=== PATIENT | male | born 1950 | race Caucasian/White ===

== ENCOUNTER 2017-01-21 08:05 | Emergency (ER) | payer MEDICARE, OTHER ==
[~2017-01-21] VITALS: Ht 177.8 cm; Wt 102.3 kg
[~2017-01-21 08:05] MED LIST: CITALOPRAM20 MG PO; GOOD NEIGHBOR P20 M1 PO; LOSARTAN POTAS100 MG PO; PERCOCET 325 MG1 TA2 PO; PREDNISONE20 M1 PO; ZOLPIDEM10 M1 PO
[2017-01-21] MEDS ORDERED: CELEXA 20MG20 MG/TA1 PO (08:21)
[2017-01-21] MEDS ORDERED: AMLODIPINE BESYL5 MG PO (08:27)
[2017-01-21] MEDS ORDERED: CEPHALEXIN500 M1 PO (09:36)
[2017-01-21 09:50] VITALS: BP 159/89
== END 2017-01-21 09:53 | disposition home or self-care (01) ==
LOC: ED 08:05
DX: S61.210A Laceration without foreign body of right index finger without damage to nail, initial encounter (principal); W23.0XXA Caught, crushed, jammed, or pinched between moving objects, initial encounter; Y92.008 Other place in unspecified non-institutional (private) residence as the place of occurrence of the external cause; I10 Essential (primary) hypertension

== ENCOUNTER → 2017-06-05 | Outpatient (CLI) | payer MEDICARE, OTHER ==
[~2017-06-05] MED LIST changes: +AMLODIPINE BESYL5 MG PO; +CELEXA 20MG20 MG/TA1 PO; +CEPHALEXIN500 M1 PO
[2017-06-05 09:15] LABS: ALBUMIN 4.1 g/dL (3.5-5.0); BUN/CREATININE RATIO 22.9 (6.0-26.0); CALCIUM 8.8 mg/dL (8.4-10.2); POTASSIUM 4.1 mmol/L (3.6-5.0); TOTAL BILIRUBIN 0.6 mg/dL (0.2-1.3); TOTAL PROTEIN 7.1 g/dL (6.3-8.2)
== END ==
LOC: LAB 08:34
PROVIDERS: Family Medicine
DX: I10 Essential (primary) hypertension (principal); Z12.5 Encounter for screening for malignant neoplasm of prostate; Z13.6 Encounter for screening for cardiovascular disorders

== ENCOUNTER → 2017-06-08 | Outpatient (CLI) | payer MEDICARE, OTHER | LOC: LAB 08:37 | DX: R73.01 Impaired fasting glucose (principal) ==

== ENCOUNTER → 2018-03-04 | Outpatient (CLI) | payer MEDICARE, OTHER | LOC: RAD 14:58 | DX: M47.812 Spondylosis without myelopathy or radiculopathy, cervical region (principal); M48.02 Spinal stenosis, cervical region; Z23 Encounter for immunization; Z98.890 Other specified postprocedural states; R20.0 Anesthesia of skin; R29.898 Other symptoms and signs involving the musculoskeletal system ==

== ENCOUNTER → 2018-03-11 | Outpatient (CLI) | payer MEDICARE, OTHER | LOC: RAD 10:54 | PROVIDERS: Family Medicine | DX: M47.812 Spondylosis without myelopathy or radiculopathy, cervical region (principal); M48.02 Spinal stenosis, cervical region; M50.21 Other cervical disc displacement, high cervical region; Z98.1 Arthrodesis status | CPT/HCPCS: A9585 ==

== ENCOUNTER 2018-03-18 09:40 | Emergency (ER) | payer MEDICARE, OTHER ==
[2018-03-18] MEDS ORDERED: DESYREL50 MG PO (10:13)
[2018-03-18] MEDS ORDERED: OXYCODONE PO (10:13)
[2018-03-18] MEDS ORDERED: IBU800 M1 PO (10:14)
[2018-03-18] MEDS ORDERED: FISH OIL 1000MG1 CAP PO (10:15)
[2018-03-18 11:03] LABS: HEMATOCRIT 44.5 % (42.0-52.0); HEMOGLOBIN 14.4 g/dL (13.5-18.0); MEAN CELL VOLUME 89 fl (78-100); MEAN CORPUSCULAR HEMOGLOBIN 29 pg (27-31); MEAN CORPUSCULAR HGB CONC 32 g/dL (33-37); PLATELET COUNT 137 K/mm3 (130-400); RED BLOOD COUNT 5.01 M/mm3 (4.20-5.60); RED CELL DISTRIBUTION WIDTH 13.4 % (11.5-14.5); WHITE BLOOD COUNT 11.2 K/mm3 (4.8-10.8)
[2018-03-18 11:14] LABS: ALBUMIN 4.2 g/dL (3.5-5.0); CALCIUM 8.8 mg/dL (8.4-10.2); POTASSIUM 4.3 mmol/L (3.6-5.0); TOTAL BILIRUBIN 0.8 mg/dL (0.2-1.3)
[2018-03-18 11:22] LABS: D-DIMER 0.38 mg/L FEU (0.15-0.50)
[2018-03-18 11:23] LABS: TROPONIN-I < 0.03 ng/mL (0.00-0.06)
[2018-03-18 11:38] LABS: LYMPHOCYTE 13 % (20-51); MONOCYTE 12 % (3-10); NEUTROPHILS 72 % (42-75)
[2018-03-18 11:46] LABS: URINE WBC 0 /hpf (0-3)
[2018-03-18 11:53] LABS: URINE APPEARANCE CLEAR; URINE BILIRUBIN NEGATIVE (NEGATIVE); URINE BLOOD NEGATIVE (NEGATIVE); URINE COLOR YELLOW; URINE GLUCOSE NEGATIVE (NEGATIVE); URINE KETONE NEGATIVE (NEGATIVE); URINE LEUKOCYTE ESTERASE NEGATIVE (NEGATIVE); URINE NITRATE NEGATIVE (NEGATIVE); URINE PROTEIN(semi-quant) NEGATIVE (NEGATIVE); URINE UROBILINOGEN NORMAL (NORMAL)
[2018-03-18 12:32] VITALS: BP 133/70
== END 2018-03-18 12:33 | disposition home or self-care (01) ==
LOC: ED 09:40
PROVIDERS: Nurse Practitioner Primary Care
DX: R06.00 Dyspnea, unspecified (principal); R42 Dizziness and giddiness; I10 Essential (primary) hypertension; Z79.899 Other long term (current) drug therapy; F41.9 Anxiety disorder, unspecified

== ENCOUNTER → 2018-03-28 | Outpatient (CLI) | payer MEDICARE, OTHER ==
[2018-03-18 12:32] VITALS: BP 133/70
[~2018-03-28] MED LIST changes: +DESYREL50 MG PO; +FISH OIL 1000MG1 CAP PO; +IBU800 M1 PO; +OXYCODONE PO
== END ==
LOC: VAS 16:36 → RAD 16:45
DX: I11.9 Hypertensive heart disease without heart failure (principal); R06.01 Orthopnea

== ENCOUNTER → 2018-03-29 | Outpatient (CLI) | payer MEDICARE, OTHER ==
[2018-03-18 12:32] VITALS: BP 133/70
== END ==
LOC: CARDREHAB 08:38 → CARDLAB 12:10
DX: I11.9 Hypertensive heart disease without heart failure (principal); R06.01 Orthopnea; M51.36 Other intervertebral disc degeneration, lumbar region
CPT/HCPCS: A9500

== ENCOUNTER → 2018-04-26 | Outpatient (CLI) | payer MEDICARE, OTHER ==
[2018-04-26 16:05] LABS: EOS # 0.2 (0.04-0.40); EOS % 2.7 % (0.0-4.0); HEMATOCRIT 42.8 % (42.0-52.0); HEMOGLOBIN 14.1 g/dL (13.5-18.0); LYMPH# 1.9 (1.50-4.00); MEAN CELL VOLUME 87 fl (78-100); MEAN CORPUSCULAR HEMOGLOBIN 29 pg (27-31); MEAN CORPUSCULAR HGB CONC 33 g/dL (33-37); MEAN PLATELET VOLUME 9.4 fl (7.4-10.4); MONO # 0.9 (0.20-0.80); NEU # 5.6 (1.40-6.50); PLATELET COUNT 229 K/mm3 (130-400); RED BLOOD COUNT 4.93 M/mm3 (4.20-5.60); RED CELL DISTRIBUTION WIDTH 12.8 % (11.5-14.5); WHITE BLOOD COUNT 8.7 K/mm3 (4.8-10.8)
[2018-04-26 16:45] LABS: ALBUMIN 4.3 g/dL (3.5-5.0); POTASSIUM 4.1 mmol/L (3.6-5.0); TOTAL BILIRUBIN 0.6 mg/dL (0.2-1.3); TOTAL PROTEIN 7.2 g/dL (6.3-8.2)
[2018-04-26 17:13] LABS: ERYTHROCYTE SEDIMENTATION RATE 32 mm/hr (0-20)
== END ==
LOC: RAD 15:35
PROVIDERS: Internal Medicine
DX: R05 Cough (principal); R06.02 Shortness of breath

== ENCOUNTER → 2018-05-16 | Outpatient (CLI) | payer MEDICARE, OTHER | LOC: RAD 10:38 | DX: M19.011 Primary osteoarthritis, right shoulder (principal); M89.8X1 Other specified disorders of bone, shoulder; Z98.890 Other specified postprocedural states ==

== ENCOUNTER → 2018-09-06 | Outpatient (CLI) | payer MEDICARE, OTHER ==
[~2018-09-06] VITALS: Ht 177.8 cm; Wt 102.3 kg
[~2018-09-06] MED LIST changes: +OMEPRAZOLE D/R20 MG PO
[2018-09-06 17:14] VITALS: BP 141/77
[2018-09-06 17:42] LABS: ALBUMIN 4.3 g/dL (3.5-5.0); POTASSIUM 3.9 mmol/L (3.6-5.0); TOTAL BILIRUBIN 0.6 mg/dL (0.2-1.3)
[2018-09-06 18:21] LABS: HEMATOCRIT 45.4 % (42.0-52.0); MEAN CELL VOLUME 84 fl (78-100); MEAN CORPUSCULAR HEMOGLOBIN 28 pg (27-31); MEAN CORPUSCULAR HGB CONC 33 g/dL (33-37); MEAN PLATELET VOLUME 10.5 fl (7.4-10.4); PLATELET COUNT 164 K/mm3 (130-400); RED BLOOD COUNT 5.39 M/mm3 (4.20-5.60); RED CELL DISTRIBUTION WIDTH 13.9 % (11.5-14.5)
[2018-09-06 18:33] VITALS: BP 139/83
[2018-09-06 18:38] LABS: LYMPHOCYTE 7 % (20-51); NEUTROPHILS 85 % (42-75)
[2018-09-06 18:41] LABS: MONOCYTE 6 % (3-10)
== END ==
LOC: AMSURD 16:42 → LAB 16:42
PROVIDERS: Physician Assistant
DX: K52.9 Noninfective gastroenteritis and colitis, unspecified (principal); E86.0 Dehydration
CPT/HCPCS: J2405; J7030

== ENCOUNTER → 2019-05-26 | Outpatient (CLI) | payer MEDICARE ==
[2018-09-06 18:33] VITALS: BP 139/83
[2019-05-26 10:30] LABS: POTASSIUM 4.5 mmol/L (3.5-5.1)
[2019-05-26 10:31] LABS: CALCIUM 9.2 mg/dL (8.3-10.5)
== END ==
LOC: LAB 10:12
PROVIDERS: Family Medicine
DX: Z00.00 Encounter for general adult medical examination without abnormal findings (principal); Z12.5 Encounter for screening for malignant neoplasm of prostate; Z13.6 Encounter for screening for cardiovascular disorders; Z23 Encounter for immunization; I10 Essential (primary) hypertension; K76.0 Fatty (change of) liver, not elsewhere classified; M47.9 Spondylosis, unspecified; F41.9 Anxiety disorder, unspecified; F51.02 Adjustment insomnia; K21.9 Gastro-esophageal reflux disease without esophagitis; S92.009S Unspecified fracture of unspecified calcaneus, sequela

== ENCOUNTER → 2019-06-09 | Outpatient (CLI) | payer MEDICARE ==
[2018-09-06 18:33] VITALS: BP 139/83
== END ==
LOC: LAB 09:17
DX: R73.9 Hyperglycemia, unspecified (principal)

== ENCOUNTER → 2019-12-26 | Outpatient (CLI) | payer MEDICARE ==
[2018-09-06 18:33] VITALS: BP 139/83
[2019-12-26 08:38] LABS: POTASSIUM 4.1 mmol/L (3.5-5.1)
[2019-12-26 08:39] LABS: CALCIUM 9.2 mg/dL (8.3-10.5)
== END ==
LOC: LAB 07:56
PROVIDERS: Family Medicine
DX: I10 Essential (primary) hypertension (principal); F51.02 Adjustment insomnia

== ENCOUNTER → 2020-01-29 | Outpatient (CLI) | payer MEDICARE ==
[2018-09-06 18:33] VITALS: BP 139/83
== END ==
LOC: CARDLAB 08:06 → CARDREHAB 09:50
DX: F51.02 Adjustment insomnia (principal); G47.34 Idiopathic sleep related nonobstructive alveolar hypoventilation
CPT/HCPCS: G0399

== ENCOUNTER 2020-07-22 13:32 | Emergency (ER) | payer MEDICARE ==
[2020-07-22] MEDS ORDERED: PRILOSEC 20MG20 MG PO (13:43)
[2020-07-22] MEDS ORDERED: PERCOCET 325 MG1 TA2 PO (15:14)
[2020-07-22 15:49] VITALS: BP 166/88
== END 2020-07-22 15:26 | disposition home or self-care (01) ==
LOC: ED 13:32
DX: S69.92XA Unspecified injury of left wrist, hand and finger(s), initial encounter (principal); R07.81 Pleurodynia; I10 Essential (primary) hypertension; F41.9 Anxiety disorder, unspecified; K21.9 Gastro-esophageal reflux disease without esophagitis; W01.0XXA Fall on same level from slipping, tripping and stumbling without subsequent striking against object, initial encounter; Y92.009 Unspecified place in unspecified non-institutional (private) residence as the place of occurrence of the external cause

== ENCOUNTER → 2020-07-29 | Outpatient (CLI) | payer MEDICARE ==
[2020-07-22 15:49] VITALS: BP 166/88
[~2020-07-29] MED LIST changes: +PRILOSEC 20MG20 MG PO
[2020-07-29 07:18] LABS: URINE APPEARANCE CLEAR; URINE BILIRUBIN NEGATIVE (NEGATIVE); URINE BLOOD TRACE (NEGATIVE); URINE COLOR YELLOW; URINE GLUCOSE NEGATIVE (NEGATIVE); URINE KETONE NEGATIVE (NEGATIVE); URINE LEUKOCYTE ESTERASE NEGATIVE (NEGATIVE); URINE MUCUS PRESENT (NOT PRESENT); URINE NITRATE NEGATIVE (NEGATIVE); URINE PROTEIN(semi-quant) 1+ mg/dL (NEGATIVE); URINE UROBILINOGEN NORMAL (NORMAL)
[2020-07-29 07:19] LABS: EOS # 0.3 (0.04-0.40); EOS % 4.5 % (0.0-4.0); HEMATOCRIT 46.6 % (42.0-52.0); HEMOGLOBIN 15.2 g/dL (13.5-18.0); LYMPH# 1.9 (1.50-4.00); MEAN CELL VOLUME 87 fl (78-100); MEAN CORPUSCULAR HEMOGLOBIN 29 pg (27-31); MEAN CORPUSCULAR HGB CONC 33 g/dL (33-37); MEAN PLATELET VOLUME 9.3 fl (7.4-10.4); MONO # 0.5 (0.20-0.80); NEU # 3.6 (1.40-6.50); PLATELET COUNT 157 K/mm3 (130-400); RED BLOOD COUNT 5.33 M/mm3 (4.20-5.60); WHITE BLOOD COUNT 6.4 K/mm3 (4.8-10.8)
[2020-07-29 07:22] LABS: POTASSIUM 4.1 mmol/L (3.5-5.1)
[2020-07-29 07:23] LABS: ALBUMIN 4.2 g/dL (3.4-4.8)
[2020-07-29 07:25] LABS: TOTAL PROTEIN 6.7 g/dL (6.2-8.1)
[2020-07-29 07:27] LABS: TOTAL BILIRUBIN 0.3 mg/dL (0.2-1.2)
== END ==
LOC: RAD 06:53
PROVIDERS: Family Medicine
DX: R10.11 Right upper quadrant pain (principal); R73.9 Hyperglycemia, unspecified; I10 Essential (primary) hypertension

== ENCOUNTER → 2021-03-03 | Outpatient (CLI) | payer MEDICARE ==
[2021-03-03 09:00] LABS: POTASSIUM 3.9 mmol/L (3.5-5.1)
[2021-03-03 09:01] LABS: CALCIUM 9.5 mg/dL (8.3-10.5)
== END ==
LOC: LAB 08:39
PROVIDERS: Family Medicine
DX: I10 Essential (primary) hypertension (principal)

== ENCOUNTER → 2021-09-14 | Outpatient (CLI) | payer MEDICARE | LOC: RAD 14:03 | DX: M47.812 Spondylosis without myelopathy or radiculopathy, cervical region (principal); M43.22 Fusion of spine, cervical region; M46.92 Unspecified inflammatory spondylopathy, cervical region ==

== ENCOUNTER → 2021-09-15 | Outpatient (CLI) | payer MEDICARE | LOC: RAD 09:00 | DX: M47.22 Other spondylosis with radiculopathy, cervical region (principal); M48.02 Spinal stenosis, cervical region; M25.78 Osteophyte, vertebrae ==

== ENCOUNTER 2021-12-23 11:28 | Emergency (ER) | payer MEDICARE ==
[2021-12-23 12:05] LABS: BASO # 0.05 K/mm3 (0.02-0.10); EOS # 0.07 K/mm3 (0.04-0.40); EOS % 0.8 % (0.0-4.0); HEMATOCRIT 45.6 % (42.0-52.0); HEMOGLOBIN 15.3 g/dL (13.5-18.0); LYMPH# 1.39 K/mm3 (1.50-4.00); MEAN CELL VOLUME 88 fl (78-100); MEAN CORPUSCULAR HEMOGLOBIN 29 pg (27-31); MEAN CORPUSCULAR HGB CONC 34 g/dL (33-37); MEAN PLATELET VOLUME 9.6 fl (7.4-10.4); MONO # 1.23 K/mm3 (0.20-0.80); NEU # 6.32 K/mm3 (1.40-6.50); PLATELET COUNT 198 K/mm3 (130-400); RED CELL DISTRIBUTION WIDTH 12.8 % (11.5-14.5); WHITE BLOOD COUNT 9.1 K/mm3 (4.8-10.8)
[2021-12-23 12:12] LABS: ALBUMIN 4.5 g/dL (3.4-4.8); POTASSIUM 3.1 mmol/L (3.5-5.1)
[2021-12-23 12:13] LABS: CALCIUM 10.1 mg/dL (8.3-10.5)
[2021-12-23 12:15] LABS: TOTAL PROTEIN 7.5 g/dL (6.2-8.1)
[2021-12-23 12:16] LABS: TOTAL BILIRUBIN 0.5 mg/dL (0.2-1.2)
[2021-12-23 15:22] VITALS: BP 112/84
== END 2021-12-23 15:20 | disposition home or self-care (01) ==
LOC: ED 11:28
PROVIDERS: Nurse Practitioner
DX: U07.1 COVID-19 (principal); E66.9 Obesity, unspecified
CPT/HCPCS: J7030

== ENCOUNTER → 2021-12-23 | Outpatient (CLI) | payer MEDICARE | LOC: LAB 10:46 | DX: U07.1 COVID-19 (principal) ==

== ENCOUNTER → 2023-07-23 | Outpatient (CLI) | payer MEDICARE ==
[~2023-07-23] MED LIST changes: +ATORVASTATIN CA20 MG PO; +HYGROTON 2525 MG/TAB PO; +ONDANSETRON HYDR4 MG PO
== END ==
LOC: LAB 11:56
PROVIDERS: Family Medicine
DX: Z12.5 Encounter for screening for malignant neoplasm of prostate (principal); Z13.220 Encounter for screening for lipoid disorders; I10 Essential (primary) hypertension; R73.03 Prediabetes

== ENCOUNTER → 2024-01-21 | Outpatient (CLI) | payer MEDICARE ==
[~2024-01-21] MED LIST changes: +LEVOFLOXACIN750 MG PO
[2024-01-21 11:12] LABS: CALCIUM 9.5 mg/dL (8.3-10.5)
== END ==
LOC: LAB 10:46
PROVIDERS: Family Medicine
DX: Z12.5 Encounter for screening for malignant neoplasm of prostate (principal); Z13.220 Encounter for screening for lipoid disorders; I10 Essential (primary) hypertension

== ENCOUNTER → 2024-05-09 | Outpatient (CLI) | payer MEDICARE ==
[2024-05-09 12:35] LABS: HEMATOCRIT 46.9 % (42.0-52.0); HEMOGLOBIN 15.7 g/dL (13.5-18.0); RED BLOOD COUNT 5.38 M/mm3 (4.20-5.60); WHITE BLOOD COUNT 8.8 K/mm3 (4.8-10.8)
[2024-05-09 12:41] LABS: ALBUMIN 4.9 g/dL (3.4-4.8)
[2024-05-09 12:42] LABS: CALCIUM 10.3 mg/dL (8.3-10.5)
[2024-05-09 12:44] LABS: TOTAL PROTEIN 7.9 g/dL (6.2-8.1)
[2024-05-09 12:45] LABS: TOTAL BILIRUBIN 0.5 mg/dL (0.2-1.2)
== END ==
LOC: LAB 12:10
PROVIDERS: Family Medicine
DX: Z13.220 Encounter for screening for lipoid disorders (principal); Z12.5 Encounter for screening for malignant neoplasm of prostate; K76.0 Fatty (change of) liver, not elsewhere classified; I10 Essential (primary) hypertension; E78.2 Mixed hyperlipidemia

== ENCOUNTER → 2024-06-13 | Outpatient (CLI) | payer MEDICARE ==
[~2024-06-13] VITALS: Ht 175.3 cm; Wt 106.1 kg
[~2024-06-13] MED LIST changes: +Regadenoson 0.08 MG/ML 5 ML VIAL IV SCH
== END ==
LOC: CARDREHAB 07:45
DX: R06.09 Other forms of dyspnea (principal)
CPT/HCPCS: A9500; J2785

== ENCOUNTER → 2024-06-16 | Outpatient (CLI) | payer MEDICARE ==
[~2024-06-16] MED LIST changes: -Regadenoson 0.08 MG/ML 5 ML VIAL IV SCH
== END ==
LOC: AMSURD 14:39
DX: I49.3 Ventricular premature depolarization (principal)

== ENCOUNTER 2024-06-20 11:55 | Emergency (ER) | payer MEDICARE ==
[~2024-06-20] VITALS: Ht 10 cm; Wt 104.5 kg
[2024-06-20] MEDS ORDERED: ceFAZolin 2 G in Water For Injection,Sterile 20 ML IV ONE (12:30)
[2024-06-20] MEDS ORDERED: CEPHALEXIN500 M1 PO (12:44)
[2024-06-20] MEDS ORDERED: NORCO 325 MG-51 TA1 PO (12:44)
[2024-06-20] MEDS ORDERED: Morphine 4 MG/ML VIAL IV ONE ×2 (12:45→14:45)
[2024-06-20] MEDS ORDERED: ROXICODONE 55 MG/TAB PO (12:45)
[2024-06-20] MEDS ORDERED: Ondansetron 4 MG/2 ML VIAL IV ONE (12:45)
[2024-06-20 15:55] VITALS: BP 128/88
== END 2024-06-20 16:05 | disposition home or self-care (01) ==
LOC: ED 11:55
DX: S62.637B Displaced fracture of distal phalanx of left little finger, initial encounter for open fracture (principal); E66.9 Obesity, unspecified; Z68.45 Body mass index [BMI] 70 or greater, adult; W01.0XXA Fall on same level from slipping, tripping and stumbling without subsequent striking against object, initial encounter; Y99.0 Civilian activity done for income or pay
CPT/HCPCS: J0690; J2270; J2405